=== PATIENT | female | born 1990 | race Caucasian/White ===

== ENCOUNTER 2019-02-20 21:03 | Emergency (ER) | payer MEDICAID, OTHER ==
[~2019-02-20] VITALS: Ht 152.4 cm; Wt 61.3 kg
[2019-02-20 21:07] VITALS: Ht 152.4 cm; Wt 61.3 kg
[2019-02-20] MEDS ORDERED: SOD CHLORIDE 0.9% 1,000 ML IV STA (21:25)
[2019-02-20] MEDS ORDERED: IBUPROFEN 600 MG TAB PO ONE (21:30)
[2019-02-20] MEDS ORDERED: ACETAMINOPHEN 325 MG TAB PO ONE (22:00)
[2019-02-20] MEDS ORDERED: IBUP200C11 PO (23:00)
[2019-02-20] MEDS ORDERED: KETOROLAC 30 MG INJ IV STA (23:22)
[2019-02-20] MEDS ORDERED: DEXAMETHASONE 4 MG/ML 1 ML INJ IV ONE (23:30)
[2019-02-20] MEDS ORDERED: AMPICILLIN/SULB 3 GM/NS (PMX) 100 ML IVPB ONE (23:30)
--- NOTE | 2019-02-20 23:58 | ERD ---
ER Documentation Chief Complaint Chief Complaint FEVER, BODY ACHES X'S 2 DAYS HPI Is a 28-year-old female comes in with fever body aches and sore throat for 2 days progressively worse. She has difficulty swallowing with no difficulty breathing. She denies any other current complaints. ROS All systems reviewed and are negative except as per history of present illness. Medications Home Meds Reported Medications Ibuprofen* (Advil*) 200 Mg Capsule, 400 MG PO Q6H PRN for PAIN, CAP 02/20/19 Allergies Allergies: Coded Allergies: No Known Allergy (Unverified , 02/20/19) PMhx/Soc Medical and Surgical Hx: pt denies Medical Hx, pt denies Surgical Hx History of Surgery: No Anesthesia Reaction: No Hx Neurological Disorder: No Hx Respiratory Disorders: No Hx Cardiac Disorders: No Hx Psychiatric Problems: No Hx Miscellaneous Medical Probl: No Hx Alcohol Use: No Hx Substance Use: No Hx Tobacco Use: No Smoking Status: Never smoker Physical Exam Vitals Vital Signs Date Temp Pulse Resp B/P (MAP) Pulse Ox O2 O2 Flow FiO2 Time Delivery Rate 02/20/19 102.9 100 20 106/73 99 Room Air 22:47 (84) 02/20/19 103.1 22:00 02/20/19 103.1 21:41 02/20/19 103.1 105 20 108/79 99 Room Air 21:30 (89) 02/20/19 103.5 125 20 124/84 96 21:07 (97) Physical Exam Const: No acute distress Head: Atraumatic Eyes: Normal Conjunctiva ENT: Right peritonsillar exudate with no uvular deviation. Neck: Full range of motion. No meningismus. Resp: Clear to auscultation bilaterally Cardio: Regular rate and rhythm, no murmurs Abd: Soft, non tender, non distended. Normal bowel sounds Skin: No petechiae or rashes Back: No midline or flank tenderness Ext: No cyanosis, or edema Neur: Awake and alert Psych: Normal Mood and Affect Result Diagram: 02/20/19211802/20/192118 Results 24 hrs Laboratory Tests Test 02/20/19 21:19 02/20/19 21:23 White Blood Count 13.4 10^3/ul Red Blood Count 4.26 10^6/ul Hemoglobin 12.5 g/dl Hematocrit 37.6 % Mean Corpuscular Volume 88.3 fl Mean Corpuscular Hemoglobin 29.3 pg Mean Corpuscular Hemoglobin Concent 33.2 g/dl Red Cell Distribution Width 12.7 % Platelet Count 257 10^3/UL Mean Platelet Volume 9.9 fl Immature Granulocytes % 0.400 % Neutrophils % 83.8 % Lymphocytes % 9.4 % Monocytes % 6.0 % Eosinophils % 0.1 % Basophils % 0.3 % Nucleated Red Blood Cells % 0.0 /100WBC Immature Granulocytes # 0.060 10^3/ul Neutrophils # 11.2 10^3/ul Lymphocytes # 1.3 10^3/ul Monocytes # 0.8 10^3/ul Eosinophils # 0.0 10^3/ul Basophils # 0.0 10^3/ul Nucleated Red Blood Cells # 0.0 10^3/ul Urine Color YELLOW Urine Clarity SLIGHTLY CLOUDY Urine pH 7.0 Urine Specific [place] 1.019 Urine Ketones 1+ mg/dL Urine Nitrite NEGATIVE mg/dL Urine Bilirubin NEGATIVE mg/dL Urine Urobilinogen NEGATIVE mg/dL Urine Leukocyte Esterase NEGATIVE Masha/ul Urine Microscopic RBC 18 /HPF Urine Microscopic WBC 4 /HPF Urine Squamous Epithelial Cells FEW /HPF Urine Hemoglobin 2+ mg/dL Urine Glucose NEGATIVE mg/dL Urine Total Protein 1+ mg/dl Sodium Level 136 mmol/L Potassium Level 3.7 mmol/L Chloride Level 104 mmol/L Carbon Dioxide Level 21 mmol/L Anion Gap 11 Blood Urea Nitrogen 6 mg/dl Creatinine 0.70 mg/dl Est Glomerular Filtrat Rate mL/min > 60 mL/min Glucose Level 113 mg/dl Calcium Level 9.4 mg/dl Total Bilirubin 0.5 mg/dl Direct Bilirubin 0.00 mg/dl Indirect Bilirubin 0.5 mg/dl Aspartate Amino Transf (AST/SGOT) 21 IU/L Alanine Aminotransferase (ALT/SGPT) 17 IU/L Alkaline Phosphatase 55 IU/L Total Protein 8.2 g/dl Albumin 4.7 g/dl Globulin 3.50 g/dl Albumin/Globulin Ratio 1.34 Lipase 34 U/L POC Venous Lactate 0.8 mmol/L Current Medications Medications Dose Sig/Debbi Start Time Status Last (Trade) Ordered Route PRN Stop Time Admin Dose Reason Admin Sodium 1,000 ml @ Q1H STAT 02/20/19 DC 02/20/19 Chloride 1,000 mls/hr IV 21:25 21:45 6/17/19 22:24 Ibuprofen 600 mg ONCE ONCE 02/20/19 DC 02/20/19 (Motrin) PO 21:30 21:41 02/20/19 21:31 650 mg ONCE ONCE 02/20/19 DC 02/20/19 Acetaminophen PO 22:00 22:00 (Tylenol 02/20/19 22:01 Tab) Ketorolac 30 mg ONCE STAT 02/20/19 DC Tromethamine IV 23:22 (Toradol) 02/20/19 23:25 4 mg ONCE ONCE 02/20/19 DC Dexamethasone IV 23:30 (Decadron) 02/20/19 23:31 Ampicillin 100 ml @ ONCE ONCE 02/20/19 Sodium/ 100 mls/hr IVPB 23:30 Sulbactam 02/21/19 00:29 Sodium Procedures/MDM EKG: Rate/Rhythm: Sinus tachycardia 126 bpm QRS, ST, T-waves: [No changes consistent w/ acute ischemia] Impression: [No evidence of ischemia or arrhythmia] Chest X-ray 1V Interpreted by me: Soft Tissue: No acute abnormalities Bones: No acute abnormalities Mediastinum/Cardiac Silhouette/Lungs: [No acute abnormalities] Medical decision making: This is a 28-year-old female who looks to be strep pharyngitis patient treated with fluids. She is able to tolerate secretions. Patient will be discharged home with Augmentin, prednisone, Motrin she is to follow-up with her primary care physician return for any worsening symptoms Departure Diagnosis: Primary Impression: Pharyngitis Pharyngitis/tonsillitis etiology: unspecified etiology Qualified Codes: J02.9 - Acute pharyngitis, unspecified Condition: Stable NAYANA UNDERWOOD Feb 20, 2019 23:58
[2019-02-20] MEDS ORDERED: AMOX1TAB10 PO (23:59)
[2019-02-20] MEDS ORDERED: IBUP800T48 PO (23:59)
[2019-02-20] MEDS ORDERED: PRED20TA PO (23:59)
[2019-02-21 01:15] VITALS: BP 99/60; PULSE 75; RESP 20
== END 2019-02-21 01:26 | disposition home or self-care (01) ==
LOC: E/R 21:03
DX: J02.9 Acute pharyngitis, unspecified (principal)
CPT/HCPCS: 36415; 71045; 80053; 81001; 81025; 83605; 83690; 85025; 87880; 93005; 96374; 96375; J0295; J1100; J1885; J7030; Z7502; Z7610